=== PATIENT | male | born 2000 | race Two or more races ===

== ENCOUNTER 2023-06-17 08:43 | Emergency (ER) | payer OTHER ==
[~2023-06-17] VITALS: Ht 170.2 cm; Wt 91.4 kg
[2023-06-17 09:11] VITALS: BP 136/81; PULSE 75; RESP 18; TEMP 97.8; O2SAT 98
== END 2023-06-17 09:20 | disposition home or self-care (01) ==
LOC: ER 08:43
DX: S91.001D Unspecified open wound, right ankle, subsequent encounter (principal); X58.XXXD Exposure to other specified factors, subsequent encounter